=== PATIENT | female | born 1995 | race Caucasian/White ===

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

== ENCOUNTER → 2017-01-23 | Outpatient (CLI) | payer MEDICAID | LOC: LAB 10:43 | DX: N94.89 Other specified conditions associated with female genital organs and menstrual cycle (principal) ==

== ENCOUNTER 2017-04-15 17:26 | Emergency (ER) | payer SELFPAY ==
[~2017-04-15] VITALS: Ht 160 cm; Wt 68.0 kg
--- NOTE | 2017-04-15 17:42 | Emergency Room Report ---
History of Present Illness Time Seen by [id number] Presenting Problem in Triage Pt arrived:Walked Presenting Problem:STARTED A H/A AND THEN FELT LIKE A MIGRAINE. NO HX IF MIGRAINE. 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 N Clinical Suspician of Infection? N Mental Status: 1 - Regular (Normal Baseline) Sepsis Risk:Low Sepsis Risk Have you (or family members/close friends) recently traveled outside the [place]? N If Yes, where/when: Have you had exposure to infectious disease within the past month? TB? Other? Specify: Comment The patient complains of a headache. She says that at about 11:30 this morning she started getting a headache and then this afternoon at 2 or 3 it developed into a migraine. She describes a LEFT temporal headache radiating behind her left ear. She has nausea and photophobia. No vomiting. No fever or upper respiratory infection symptoms. She says she has a history of migraines when she was a younger child. No medications taken for this today. She denies any other visual disturbance, numbness or weakness, or neck pain or stiffness. She drove herself here. ALLERGIES Coded Allergies: Penicillins (Mild, 11/18/16) latex (11/18/16) Home Medications Reported Medications No Known Home Medications History Medical History General CAD? No Angina: No [place]: No Hypertension? No Hyperlipidemia? No CHF? No COPD? No Asthma? Yes Anemia? No Hernia? No Thyroid Problems? Yes Hypothyroidism? Yes CVA? No Seizures? No Diabetes? No End Stage Renal Disease? No UTI? No Stones? No GB Disease: No Nephritic Syndrome? No Asplenia? No Hepatitis? No Sickle Cell Disease? No Arthritis? No Cataracts? No Glaucoma? No MRSA? No TB? No Cancer? 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 denies: nose discharge, nose congestion, throat pain. Respiratory denies cough Gastrointestinal nausea, denies vomiting Psychiatric/Neurological headache, denies numbness, denies weakness Physical Exam Vital Signs Vital Signs Date Time Temp Pulse Resp B/P Pulse O2 O2 Flow FiO2 Ox Delivery Rate 04/15 1830 98.6 68 20 120/64 98 04/15 1755 20 04/15 1728 98.7 75 20 105/51 98 General Appearance no apparent distress Eye Exam - bilateral eye normal exam, bilateral eye PERRL, bilateral eye EOMI Ear, Nose, Throat hearing grossly normal, normal ENT inspection, tympanic membranes normal, no tenderness of ears Neck normal inspection, non-tender, supple, full range of motion Respiratory Status Yes: trachea midline, chest symmetrical. No: respiratory distress. Lung Sounds bilateral: normal breath sounds, lungs clear. 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 No Results/Orders Laboratory Tests 04/15/17 1740: Urine Color YELLOW, Urine Appearance CLEAR, Urine pH 5.5, Ur Specific [place] 1.025, Urine Protein NEGATIVE, Urine Ketones NEGATIVE, Urine Blood NEGATIVE, Urine Nitrate NEGATIVE, Urine Bilirubin NEGATIVE, Urine Urobilinogen 0.2, Ur Leukocyte Esterase TRACE H, Urine RBC NONE, Urine WBC 10-20, Ur Squamous Epith Cells TNTC, Urine Bacteria 3+, Urine Other CLUE CELLS 2+, Urine Glucose NEGATIVE 04/15/17 1730: Sodium 139, Potassium 3.7, Chloride 104, Carbon Dioxide 29, BUN 12, Creatinine 0.8, Estimated Creat Clear 121, Estimated GFR (MDRD) 92, Glucose 94, Calcium 9.0 , Total Bilirubin 0.4, AST 18, ALT 19, Alkaline Phosphatase 74, Total Protein 7.2, Albumin 4.3, Globulin 2.9, Albumin/Globulin Ratio 1.5, WBC 7.1, RBC 4.23, Hgb 12.2, Hct 37.5, MCV 88.6, RDW 12.7, Plt Count 279, MPV 8.0, Gran % 70.3, Gran # 5.0, Lymphocytes % 23.4, Monocytes % 5.0, Eosinophils % 0.9, Basophils % 0.5, Lymphocytes # 1.7, Monocytes # 0.4, Eosinophils # 0.1, Basophils # 0.0, PUBS MCHC 32.4, MCH 28.7 Current Medication Orders Sig/Skylra Start time Last Medication Dose Route Stop Time Status Admin Ketorolac 30 MG ONCE ONE 04/15 1800 DC 04/15 Tromethamine IV 04/15 180 1755 Ondansetron HCl 4 MG ONCE ONE 04/15 1800 DC 04/15 IV 04/15 180 1754 Ondansetron HCl 0 .STK-MED ONE 04/15 175 DC .ROUTE Ketorolac 0 .STK-MED ONE 04/15 175 DC Tromethamine .ROUTE Sodium Chloride 10 ML PRN PRN 04/15 174 DCD IV 04/16 173 Orders Procedure Date/time Status CULTURE, URINE 04/15 174 Active URINALYSIS/COMPLETE 04/15 173 Complete URINE 04/15 173 Complete IV SALINE LOCK 04/15 173 Active CBC WITH AUTO DIFF 04/15 1733 Complete CHEM 12 PROFILE 04/15 173 Complete Progress - 6:18 PM: Patient states she is feeling better. Pain level is 2/10. Declines any prescriptions for home use. States she will take [id number] medicines. Departure Departure Disposition DC Home or Self Care(routine) Clinical Impression Primary Impression: Migraine Qualifiers: Migraine type: without aura Status migrainosus presence: with status migrainosus Intractability: not intractable Qualified Code: G43.001 - Migraine without aura, not intractable, with status migrainosus Condition STABLE Patient Instructions DI for Migraine Additional Instructions Additional instructions for HEADACHE: See your physician as soon as possible for further evaluation. Return immediately if worsening headache, vomiting, problems with vision or speech, fever, numbness or weakness of the extremities, neck pain or stiffness. Prescriptions Current Visit Scripts No Known Home Medications ED Critical Care Critical Care No at 2008
--- NOTE | 2017-04-15 17:42 | Emergency Room Report ---
History of Present Illness Time Seen by [id number] Presenting Problem in Triage Pt arrived:Walked Presenting Problem:STARTED A H/A AND THEN FELT LIKE A MIGRAINE. NO HX IF MIGRAINE. 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 N Clinical Suspician of Infection? N Mental Status: 1 - Regular (Normal Baseline) Sepsis Risk:Low Sepsis Risk Have you (or family members/close friends) recently traveled outside the [place]? N If Yes, where/when: Have you had exposure to infectious disease within the past month? TB? Other? Specify: Comment The patient complains of a headache. She says that at about 11:30 this morning she started getting a headache and then this afternoon at 2 or 3 it developed into a migraine. She describes a LEFT temporal headache radiating behind her left ear. She has nausea and photophobia. No vomiting. No fever or upper respiratory infection symptoms. She says she has a history of migraines when she was a younger child. No medications taken for this today. She denies any other visual disturbance, numbness or weakness, or neck pain or stiffness. She drove herself here. ALLERGIES Coded Allergies: Penicillins (Mild, 11/18/16) latex (11/18/16) Home Medications Reported Medications No Known Home Medications History Medical History General CAD? No Angina: No [place]: No Hypertension? No Hyperlipidemia? No CHF? No COPD? No Asthma? Yes Anemia? No Hernia? No Thyroid Problems? Yes Hypothyroidism? Yes CVA? No Seizures? No Diabetes? No End Stage Renal Disease? No UTI? No Stones? No GB Disease: No Nephritic Syndrome? No Asplenia? No Hepatitis? No Sickle Cell Disease? No Arthritis? No Cataracts? No Glaucoma? No MRSA? No TB? No Cancer? 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 denies: nose discharge, nose congestion, throat pain. Respiratory denies cough Gastrointestinal nausea, denies vomiting Psychiatric/Neurological headache, denies numbness, denies weakness Physical Exam Vital Signs Vital Signs Date Time Temp Pulse Resp B/P Pulse O2 O2 Flow FiO2 Ox Delivery Rate 04/15 1830 98.6 68 20 120/64 98 04/15 1755 20 04/15 1728 98.7 75 20 105/51 98 General Appearance no apparent distress Eye Exam - bilateral eye normal exam, bilateral eye PERRL, bilateral eye EOMI Ear, Nose, Throat hearing grossly normal, normal ENT inspection, tympanic membranes normal, no tenderness of ears Neck normal inspection, non-tender, supple, full range of motion Respiratory Status Yes: trachea midline, chest symmetrical. No: respiratory distress. Lung Sounds bilateral: normal breath sounds, lungs clear. 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 No Results/Orders Laboratory Tests 04/15/17 1740: Urine Color YELLOW, Urine Appearance CLEAR, Urine pH 5.5, Ur Specific [place] 1.025, Urine Protein NEGATIVE, Urine Ketones NEGATIVE, Urine Blood NEGATIVE, Urine Nitrate NEGATIVE, Urine Bilirubin NEGATIVE, Urine Urobilinogen 0.2, Ur Leukocyte Esterase TRACE H, Urine RBC NONE, Urine WBC 10-20, Ur Squamous Epith Cells TNTC, Urine Bacteria 3+, Urine Other CLUE CELLS 2+, Urine Glucose NEGATIVE 04/15/17 1730: Sodium 139, Potassium 3.7, Chloride 104, Carbon Dioxide 29, BUN 12, Creatinine 0.8, Estimated Creat Clear 121, Estimated GFR (MDRD) 92, Glucose 94, Calcium 9.0 , Total Bilirubin 0.4, AST 18, ALT 19, Alkaline Phosphatase 74, Total Protein 7.2, Albumin 4.3, Globulin 2.9, Albumin/Globulin Ratio 1.5, WBC 7.1, RBC 4.23, Hgb 12.2, Hct 37.5, MCV 88.6, RDW 12.7, Plt Count 279, MPV 8.0, Gran % 70.3, Gran # 5.0, Lymphocytes % 23.4, Monocytes % 5.0, Eosinophils % 0.9, Basophils % 0.5, Lymphocytes # 1.7, Monocytes # 0.4, Eosinophils # 0.1, Basophils # 0.0, PUBS MCHC 32.4, MCH 28.7 Current Medication Orders Sig/Skylar Start time Last Medication Dose Route Stop Time Status Admin Ketorolac 30 MG ONCE ONE 04/15 1800 DC 04/15 Tromethamine IV 04/15 180 1755 Ondansetron HCl 4 MG ONCE ONE 04/15 1800 DC 04/15 IV 04/15 180 1754 Ondansetron HCl 0 .STK-MED ONE 04/15 175 DC .ROUTE Ketorolac 0 .STK-MED ONE 04/15 175 DC Tromethamine .ROUTE Sodium Chloride 10 ML PRN PRN 04/15 174 DCD IV 04/16 173 Orders Procedure Date/time Status CULTURE, URINE 04/15 174 Active URINALYSIS/COMPLETE 04/15 173 Complete URINE 04/15 173 Complete IV SALINE LOCK 04/15 173 Active CBC WITH AUTO DIFF 04/15 1733 Complete CHEM 12 PROFILE 04/15 173 Complete Progress - 6:18 PM: Patient states she is feeling better. Pain level is 2/10. Declines any prescriptions for home use. States she will take [id number] medicines. Departure Departure Disposition DC Home or Self Care(routine) Clinical Impression Primary Impression: Migraine Qualifiers: Migraine type: without aura Status migrainosus presence: with status migrainosus Intractability: not intractable Qualified Code: G43.001 - Migraine without aura, not intractable, with status migrainosus Condition STABLE Patient Instructions DI for Migraine Additional Instructions Additional instructions for HEADACHE: See your physician as soon as possible for further evaluation. Return immediately if worsening headache, vomiting, problems with vision or speech, fever, numbness or weakness of the extremities, neck pain or stiffness. Prescriptions Current Visit Scripts No Known Home Medications ED Critical Care Critical Care No at 2008
[2017-04-15 17:43] LABS: HEMOGLOBIN 12.2 g/dL (12.2-16.2); LYMPH # 1.7 K/mm3 (0.7-4.5); LYMPH % 23.4 % (10-50.0)
[2017-04-15 17:44] LABS: URINE BILIRUBIN - DIPSTICK NEGATIVE (NEG); URINE BLOOD NEGATIVE (NEG)
[2017-04-15 18:30] VITALS: BP 120/64
[2017-04-15 18:43] LABS: URINE SQUAMOUS CELLS TNTC #/hpf (0-5)
== END 2017-04-15 18:31 | disposition home or self-care (01) ==
LOC: ER 17:26
PROVIDERS: Emergency Medicine
DX: G43.001 Migraine without aura, not intractable, with status migrainosus (principal); J45.909 Unspecified asthma, uncomplicated; Z91.040 Latex allergy status; Z88.0 Allergy status to penicillin
CPT/HCPCS: J2405